=== PATIENT | male | born 1970 | race Caucasian/White ===

== ENCOUNTER 2021-01-18 15:56 | Emergency (ER) | payer BC, SELFPAY ==
[2021-01-18] VITALS (7 sets, daily range): BP systolic 141–153; BP diastolic 78–98; PULSE 67–89; RESP 15–26; TEMP 36.8; O2SAT 98–100
--- NOTE | ~2021-01-18 | XR_ITS ---
XR shoulder RT min 2V 01/18/2021 16:45 Indication: Right shoulder pain. Possible dislocation. Procedure: 2 views right shoulder Comparison: No prior studies for comparison. Findings: There is anterior right shoulder dislocation. No definite fracture identified. No significa nt soft tissue abnormality. Impression: 1: Right anterior shoulder dislocation. Reviewed, dictated and finalized at location A. Y CHEMIST Impression: 1: Right anterior shoulder dislocation.
--- NOTE | ~2021-01-18 | XR_ITS ---
XR shoulder RT min 2V 01/18/2021 17:41 INDICATION: Right shoulder pain post reduction PROCEDURE: 4 views right shoulder COMPARISON: No prior studies for comparison. FINDINGS: Fracture, dislocation or subluxation is not identified. There is anatomic alignment of the right shoulder post reduction. The soft tissues appear within normal limits. No foreign bodies are i dentified. IMPRESSION: 1: Anatomic alignment of the right shoulder post reduction. No underlying fracture appreciated. Reviewed, dictated and finalized at location A. ICE STATION CASHIER IMPRESSION: 1: Anatomic alignment of the right shoulder post reduction. No underlying fract ure appreciated.
--- NOTE | 2021-01-18 16:19 | ED.GENADULT ---
HPI - General Adult General Chief complaint: Extremity Injury, Upper <Laure Miranda PA-C - Last Filed: 01/18/21 18:25> Stated complaint: dislocated shoulder <Laure Miranda PA-C - Last Filed: 01/18/21 18:25> Time Seen by Provider: 01/18/21 16:18 <Laure Miranda PA-C - Last Filed: 01/18/21 18:25> Source: patient <Laure Miranda PA-C - Last Filed: 01/18/21 18:25> Mode of arrival: ambulatory <Laure Miranda PA-C - Last Filed: 01/18/21 18:25> Limitations: no limitations <Laure Miranda PA-C - Last Filed: 01/18/21 18:25> History of Present Illness HPI narrative: 50-year-old male who fell off a ladder while decorating his [employer] tree today now with right shoulder pain. <Laure Miranda PA-C - Last Filed: 01/18/21 18:25> Related Data Allergies/adverse reactions: Allergies Allergy/AdvReac Type Severity Reaction Status Date / Time Sulfa (Sulfonamide Allergy Mild Unknown Verified 01/18/21 16:01 Antibiotics) <Laure Miranda PA-C - Last Filed: 01/18/21 18:25> Review of Systems Review of Systems: All systems reviewed & are unremarkable except as noted in HPI and below <Laure Miranda PA-C - Last Filed: 01/18/21 18:25> [facility] Family History Family History: Family History Sibling Patient's brother is in good health <Laure Miranda PA-C - Last Filed: 01/18/21 18:25> Social History Social History: Social History (Updated 01/18/21 @ 18:18 by Laure Miranda PA-C) Smoking packs per day: 0.05 Smoking cigarettes per day: 1.0 Years smoked: 30 Smoking pack-years: 1.50 Smoking status: Former smoker Second hand tobacco smoke exposure: No Alcohol intake: current Substance use: never <Laure Miranda PA-C - Last Filed: 01/18/21 18:25> Exam Const: General: alert <Laure Miranda PA-C - Last Filed: 01/18/21 18:25> Orientation/consciousness: patient oriented x3 <Laure Miranda PA-C - Last Filed: 01/18/21 18:25> Limitations: other limitations (pain) <Laure Miranda PA-C - Last Filed: 01/18/21 18:25> HENMT: Head: normal to inspection <Laure Miranda PA-C - Last Filed: 01/18/21 18:25> Eyes: Pupils: Equal, round and reactive pupils present <Laure Miranda PA-C - Last Filed: 01/18/21 18:25> Resp: Effort & Inspection: normal respiratory effort <Laure Miranda PA-C - Last Filed: 01/18/21 18:25> Auscultation: clear to auscultation bilaterally <Laure Miranda PA-C Last Filed: 01/18/21 18:25> Cardio: Rate: regular rate <Laure Miranda PA-C Last Filed: 01/18/21 18:25> Rhythm: regular rhythm <Laure Miranda PA-C - Last Filed: 01/18/21 18:25> Skin: General skin exam: normal color <Laure Miranda PA-C - Last Filed: 01/18/21 18:25> Neuro: General: patient oriented x3 <Laure Miranda PA-C - Last Filed: 01/18/21 18:25> Extrem: Right upper extremity: normal capillary refill and shoulder/upper arm abnormal to inspection obvious dislocation <Laure Miranda PA-C - Last Filed: 01/18/21 18:25> Psych: Appearance: grossly normal <Laure Miranda PA-C - Last Filed: 01/18/21 18:25> Mental Status: mental status grossly normal <Laure Miranda PA-C - Last Filed: 01/18/21 18:25> Thought content: Yes Normal thought content present <Laure Miranda PA-C - Last Filed: 01/18/21 18:25> Course Course Emergency Course: Pt is feeling much better post-reduction. He is using both arms equally, no numbness or tingling in right arm/hand. Reviewed use of sling. <Laure Miranda PA-C - Last Filed: 01/18/21 18:25> VOLLEYBALL REFEREE/PA Physician Supervision I saw and evaluated the patient myself I performed the procedural sedation with reduction I agree with the care plan. <Vignesh Bañuelos MD - Last Filed: 01/18/21 18:48> Vital Signs Vital signs: Vital Signs Temperature 36.8 C 01/18/21 16:15 Pulse Rate 71 01/18/21 16:15 Respiratory Rate 17
[2021-01-18] MEDS: fentaNYL CITRATE INJ (*CRX) 100 MCG/2 ML VIAL 50 MCG IV PUSH ×2 (16:30→17:07)
[2021-01-18] MEDS: PROPOFOL IV EMULSION 200 MG/20 ML VIAL (17:25)
--- NOTE | 2021-01-18 17:25 | PC.NURSE ---
1725- Dr. Bañuelos at bedside, timeout performed, [address] Bañuelos.
--- NOTE | 2021-01-18 17:27 | PC.NURSE ---
1727- 20mg Propofol given by Dr. Bañuelos
--- NOTE | 2021-01-18 17:29 | PC.NURSE ---
1729- Shoulder back in place. Pt fully awake at this time.
== END 2021-01-18 18:46 | disposition home or self-care (01) ==
PROVIDERS: Emergency Provider Emergency Medicine; PCP Internal Medicine
DX: S43.014A Anterior dislocation of right humerus, initial encounter (principal); Z87.891 Personal history of nicotine dependence; W11.XXXA Fall on and from ladder, initial encounter
CPT/HCPCS: 23650; 73030; 96374; 96375; 99285; A4565; J2704; J3010

== ENCOUNTER 2022-10-21 12:45 | Outpatient (CLI) | payer BC, SELFPAY ==
[2022-10-21 14:06] LABS: SARS-CoV-2 RNA PCR Negative (Negative)
== END 2022-10-21 12:46 | disposition home or self-care (01) ==
PROVIDERS: PCP Internal Medicine; Visit Provider Internal Medicine
DX: J06.9 Acute upper respiratory infection, unspecified (principal)
CPT/HCPCS: 87635

== ENCOUNTER 2024-07-25 16:44 | Emergency (ER) | payer OTHER, SELFPAY ==
--- NOTE | 2024-07-25 16:57 | ED_ITS ---
HPI - URI/Sore Throat General Chief Complaint: Upper Respiratory Infection Stated Complaint: Fever/Sinus Time Seen by Provider: 07/25/24 17:10 Source: patient Mode of arrival: ambulatory Limitations: no limitations History of Present Illness HPI Narrative: Trevon is a 54-year-old male patient presenting to the clinic today with complaints of fever, chills, sinus congestion, headaches, diarrhea, and overall general malaise. He reports he was in the country of [place] for 9 days and was being bitten by sand flies. States that the locals gave him a medication to take for the bites. States that his family was ill as well however there symptoms have improved and he is still feeling bad. States that today is the 1st day he started feeling good after taking some ibuprofen. Denies any visual changes, blurry vision, dizziness, chest pain, abdominal pain, or shortness of breath. Related Data Allergies Allergy/AdvReac Type Severity Reaction Status Date / Time Sulfa (Sulfonamide Allergy Mild Unknown Verified 07/25/24 17:02 Antibiotics) Review of Systems Review of Systems: Pertinent positives per HPI. Patient denies any rash, headache, visual changes, dizziness, cough, shortness of breath, chest pain, palpitations, nausea, vomiting, diarrhea, constipation, abdominal pain, or any urinary issues. [facility] Past Medical History Medical History Shoulder dislocation Family History Family History Sibling Patient's brother is in good health Social History Social History Social History: Caffeine-daily Smoking packs per day: 0.05 Smoking cigarettes per day: 1.0 Years smoked: 30 Smoking pack-years: 1.50 Smoking status: Current every day smoker Tobacco type: cigarettes Second hand tobacco smoke exposure: No Alcohol intake: current Alcohol use details: socially Substance use: never Substance use type: does not use Lack of Transportation: No Lack of Food: Never True Current Housing: I Have Housing Concerned About Future Housing: No Difficulty Paying Gas/Electric Bills: No Difficulty Paying for Meds: No Currently Unemployed: No Education: Bachelor's Degree Difficulty w/ Childcare or Family Care: No Comments At the time of my signature, I reviewed and agree with the nursing past medical, surgical, social, and family history. There is no relevant family history pertinent to the patient complaint. Exam Narrative: General: Well-developed, well nourished, in no apparent distress Head: Normocephalic, atraumatic Eyes: Pupils equally round and reactive to light bilaterally, EOM intact, sclera and conjunctive clear, no discharge, lids normal Ears: TMs intact and clear, ear canals clear, no drainage, grossly hearing normal. Nose: Nares patent, no discharge, no inflammation, no sinus tenderness. Mouth: Oropharynx without lesions or masses, good dentition, MMM. Tongue midline, even rise and fall of uvula Neck: Supple, trachea midline, no enlargement of anterior or posterior cervical nodes, no thyroid masses or goiter palpable. Cardio: Regular rate and rhythm, s1 and s2 normal, no murmur appreciated. Resp: Clear to auscultation bilaterally anteriorly and posteriorly, no rhonchi, rales, wheezing or rubs Musculoskeletal: No deformity, non-tender to palpation, grossly normal range of motion, muscle strength strong and equal, peripheral pulse strong, no edema, no cyanosis, normal gait and station Neuro: Alert and oriented x4 with normal speech, no focal deficits, cranial nerves I through XII intact, muscle strength 5 out of 5, sensation intact bilaterally, negative Romberg test Course Course Emergency Course: Portions of this record may have been created with voice recognition software. Level of Care: Express Care Visit Vital Signs Vital signs: Vital Signs Temperature 37.6 C H 07/25/24 16:58 Pulse Rate 96 07/25/24 16:58 Respiratory Rate 20 07/25/24 16:58 Blood Pressure 135/78 07/25/24 16:58 Pulse Oximetry 97 07/25/24 16:58 Oxygen Delivery Room Air 07/25/24 16:58 Temperature 37.6 C H 07/25/24 16:58 Pulse Rate 96 07/25/24 16:58 Respiratory Rate 20 07/25/24 16:58 Blood Pressure 135/78 07/25/24 16:58 Pulse Oximetry 97 07/25/24 16:58 Oxygen Delivery Room Air 07/25/24 16:58 Vital signs reviewed MDM - URI/Sore Throat MDM Narrative Medical decision making narrative: At the time of visit patient is resting comfortably on the exam table. Patient appears to be nontoxic. Plan: Offer to send patient to the ER for further evaluation however patient would like to wait and see how he feels tomorrow. Discussed patient's case with Dr. Quigley in the emergency room [facility]. No signs of symptoms of encephalitis, dysentery, or malaria. Recommend going to the emergency room if his symptoms worsen. Supportive measures were discussed with the patient and they voiced understanding discharge instructions and agrees to treatment plan. Return precautions reviewed Differential Diagnosis Differential diagnosis: Likely upper respiratory infection, otitis media, sinusitis, viral infection, influenza and pharyngitis Lab Data Labs: Lab Results 07/25/24 07/25/24 Range/Units 16:55 18:00 POC Influenza A Ag Negative (Negative) POC Influenza B Ag Negative (Negative) POC SARS CoV-2 Ag Negative (Negative) POC Grp A Strep Screen Negative (Negative) Discharge Plan Discharge Clinical Impression: Acute viral syndrome Headache Qualifiers: Headache type: unspecified Headache chronicity pattern: acute headache Intractability: not intractable Qualified Code(s): R51.9 - Headache, unspecified Patient Disposition: Home Condition: Stable Instructions: Antibiotic Form, Acute Headache (ED), Viral Syndrome (ED) Additional Instructions: Increase fluids and stay well hydrated Tylenol/motrin for pain/fever Flonase and OTC antihistamines as directed Vicks vapor rub to open sinuses Sinus rinses for congestion Cepacol spray, cough drops, throat lozenges, warm tea with honey/lemon, gargle salt water to soothe throat BRAT diet for diarrhea Clear liquids x 24 hours then advance as tolerated for nausea/vomiting Go to the ED if you develop a worsening in your condition- high fever not controlled by Tylenol or Motrin, dehydration, weakness, lethargy, worsening headache, nausea, vomiting, abdominal pain, shortness of breath, or chest pain. Follow up with your PCP in 3-5 days if symptoms persist. Patient Language: Luxembourgish Prescriptions: No Action finasteride [Propecia] 1 mg tablet 1 mg PO DAILY Qty: 90 0RF Rx Instructions: Appointment before further refills sertraline 50 mg tablet See Rx Instructions .ROUTE .COMPLEX Qty: 90 1RF Dose Instruction: TAKE 1 TABLET BY MOUTH DAILY Rx Instructions: TAKE 1 TABLET BY MOUTH DAILY Follow-up/Referrals: Milly,Jose Ayala PA-C [Primary Care Provider] - Time of Disposition: 19:14 Quality NIHSS Nursing Documentation ED NIHSS nursing documentation: reviewed/agree
[2024-07-25 16:58] VITALS: BP 135/78; PULSE 96; RESP 20; TEMP 37.6; O2SAT 97
[2024-07-25 18:04] LABS: EDCOVIDSCREEN Negative (Negative); EDINFLUASCREEN Negative (Negative); EDINFLUBSCREEN Negative (Negative)
[2024-07-25 18:11] LABS: EDSTREPNEGPOS1 Negative (Negative)
== END 2024-07-25 18:40 | disposition home or self-care (01) ==
PROVIDERS: Emergency Provider Nurse Practitioner Family; PCP Physician Assistant
DX: B34.9 Viral infection, unspecified (principal); R51.9 Headache, unspecified; Z20.822 Contact with and (suspected) exposure to COVID-19; F17.210 Nicotine dependence, cigarettes, uncomplicated
CPT/HCPCS: 87081; 87426; 87804; 87880; 99213; G0463

== ENCOUNTER 2024-07-26 11:13 | Emergency (ER) | payer OTHER, SELFPAY ==
--- NOTE | ~2024-07-26 | XR_ITS ---
EXAMINATION: XR chest 2V 07/26/2024 12:31 INDICATION: Fever PROCEDURE: 2 view chest COMPARISON: No prior studies for comparison. FINDINGS: The lungs are clear. The cardiomediastinal silhouette is within normal limits. There are no pleural effusions. There is no pneumothorax suspected. IMPRESSION: 1: NO ACUTE CARDIOPULMONARY DISEASE. Reviewed, dictated and finalized at location A.
[2024-07-26 11:24] VITALS: BP 115/74; PULSE 84; RESP 18; TEMP 36.7; O2SAT 98
--- NOTE | 2024-07-26 11:25 | ECG_ITS ---
Test Date: 2024-07-26 11:52:56 Measurements Intervals [place] Rate: 67 P: 63 AR: 145 QRS: 62 QRSD: 86 T: 52 QT: 355 QTc: 377 Interpretive Statements SINUS RHYTHM CONSIDER RIGHT VENTRICULAR CONDUCTION DELAY DELAYED PRECORDIAL R/S TRANSITION BORDERLINE ECG No previous ECG available for comparison Electronically Signed On 07-26-2024 12:00:34 CDT by Sean Wheeler D.O.
--- OUTSIDE RECORDS SUMMARY | 2024-07-26 11:27 | XMS_ITS | Encounter Summary ---
Author Organization [facility] Address [address] [place] [address] Care Team Providers Care Rod Puller And Coiler Name Role Phone Unavailable Primary Care Provider Unavailabl e Encounter Details Date Type Department Care Team (Late st Contact Info) Description 06/30/2024 Lab Requisition [facility] - DermPath Lab [address] [facility] [place] [id number] Esperanza Crawford DO [address] [facility] [place] [place] [address] [place] [address] Social History Tobacco Use Types Packs/Day Years Used Date Smoking Tobacco: Never Assessed Sex and Gender Information Value Date Recorded Sex Assigned at Not on file 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 Gender Identity Not on file Sexual Orientation Not on file documented as of this encounter Plan of Treatment Not on file documented as of this encounter Procedures Procedure Name Priority Date/Time Associated Diagnosis Comments DERMATOPATHOLOGY Routine 06/30/2024 3:04 PM CDT documented in this encounter Results * DERMATOPATHOLOGY (06/30/2024 3:04 PM CDT) Case Report Dermatopathology Report Case: [id number] Authorizing Provider: Esperanza Crawford DO Collected: 06/30/2024 03:04 PM Ordering Location: [facility] - Received: 07/04/2024 01:19 PM DermPath Lab Pathologist: Sarah Sy MD Specimen: Skin, right upper arm 5 4:12 PM CDT DERMATOPATHOLOGY LABORATORY Final Diagnosis Specimen A. SKIN, right upper arm: HYPERPLASTIC (HYPERTROPHIC) ACTINIC KERATOSIS; EXTENDING TO THE BASE OF THE SPECIMEN (L57.0) (see microscopic description and comment) 5 4:12 PM CDT DERMATOPATHOLOGY LABORATORY at 1612 CDT Clinical History R/O BCC, [place] Papule; Non-Healing 4:12 PM CDT DERMATOPATHOLOGY LABORATORY Gross Description Specimen A: Received is one formalin filled container labeled with the patient's name and designated right upper arm. The specimen consists of a shave biopsy measuring 5x5x2 mm. Jar 0. 4:12 PM CDT DERMATOPATHOLOGY LABORATORY Microscopic Description Specimen A. SKIN, right upper arm: There is hyperkeratosis alternating with parakeratosis. There is epidermal hyperplasia with disorderly maturation of keratinocytes with nuclear pleomorphism confined to the lower half of the epidermis. This process extends to the base of the specimen. Additional deeper sections were obtained and reviewed. COMMENT: A squamous cell carcinoma cannot be ruled out. 4:12 PM CDT DERMATOPATHOLOGY LABORATORY Disclaimer An external and internal positive and negative controls are appropriate for the histochemical, immunohistochemical and immunofluorescence stain(s) in this case (if any), except where stated explicitly. The performance characteristics of the stain(s) cited in this report were developed and its performance characteristic determined by the Dermatopathology Laboratory at [facility], directed by Dr. Lucy Cobb. These tests need not be, and therefore are not, approved by the [place] Food and Drug Administration. The tests are used for clinical purposes. Billing Codes Specimen Charges Stain Charges 51998 1 4:12 PM CDT DERMATOPATHOLOGY LABORATORY Embedded Images 4:12 PM CDT DERMATOPATHOLOGY LABORATORY Pathology/Cytolo gy TISSUE SPECIMEN FROM SKIN / Unknown 06/30/2024 3:04 PM CDT 07/04/2024 1:19 PM CDT us Esperanza Crawford DO LAB - PATHOLOGY/CYTOLOGY ORDERABLES Final Result DERMATOPATHOLOGY LABORATORY [facility] - Department of Dermatology [address] [place] [address], [facility] [phone] documented in this encounter Visit Diagnoses Not on filedocumented in this encounter
--- OUTSIDE RECORDS SUMMARY | 2024-07-26 11:27 | XMS_ITS | Clinical Summary ---
Author Organization [facility] Address [address] [place] [address] Care Team Providers Care Press Pipe Inspector Name Role Phone Unavailable Primary Care Provider Unavailabl e Source Comments [facility] [employer],non-owned Affiliates and Associated Physician Practices is amultiple site organization consisting of ambulatory clinics and hospital sitesin [place], [place], [place] and [place]. This disclosure is being madepursuant to the Care Everywhere program and may not contain all information available regarding this patient. 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 Gender Identity Not on file Sexual Orientation Not on file Plan of Treatment Health Maintenance Due Date Last Done Comments COLOGUARD (AGES 45-75) - COL ON CA SCREENING 1970 COLON MONITORING 1970 COLONOSCOPY - COLON CA SCREENING 1970 CT COLONOGRAPHY - COLON CA SCREENING 1970 Colorectal Cancer Screening 1970 FIT - COLON CA SCREENING 1970 FLEX SIG - COLON CA SCREENING 1970 LIPID TESTING 1970 HIV SCREENING 1985 HEPATITIS C SCREENING 04/30/1988 DTAP/TDAP/TD VACCINES (1 - Tdap) 1989 HEPATITIS B VACCINE (1 of 3 - 19+ 3-dose series) 1989 PNEUMOCOCCAL VACCINE 50+ (1 of 1 - PCV) 2020 ZOSTER VACCINE (1 of 2) 2020 COVID-19 VACCINE ( - 2023-2 5 season) 2023 DEPRESSION SCREENING 02/24/2024 INFLUENZA VACCINE (Season Ended) 2024 HIB VACCINE Aged Out No longer eligi ble based on patient's age to complete this topic HPV VACCINE Aged Out No longer eligi ble based on patient's age to complete this topic MENINGOCOCCAL (Group B) VACC INE SHARED DECISION-MAKING Aged Out No longer eligibl e based on patient's age to complete this topic MENINGOCOCCAL GROUPS A/C/Y/W VACCINE Aged Out No longer eligible b ased on patient's age to complete this topic Procedures Procedure Name Priority Date/Time Associated Diagnosis Comments DERMATOPATHOLOGY Routine 06/30/2024 3:04 PM CDT from Last 3 Months Results * DERMATOPATHOLOGY (06/30/2024 3:04 PM CDT) Case Report Dermatopathology Report Case: [id number] Authorizing Provider: Esperanza Crawford DO Collected: 06/30/2024 03:04 PM Ordering Location: [facility] - Received: 07/04/2024 01:19 PM DermPath Lab Pathologist: Sarah Sy MD Specimen: Skin, right upper arm 4:12 PM CDT DERMATOPATHOLOGY LABORATORY Final Diagnosis Specimen A. SKIN, right upper arm: HYPERPLASTIC (HYPERTROPHIC) ACTINIC KERATOSIS; EXTENDING TO THE BASE OF THE SPECIMEN (L57.0) (see microscopic description and comment) 4:12 PM CDT DERMATOPATHOLOGY LABORATORY at 1612 CDT Clinical History R/O BCC, [place] Papule; Non-Healing 4:12 PM CDT DERMATOPATHOLOGY LABORATORY [...] characteristic determined by the Dermatopathology Laboratory at [facility], directed by Dr. Lucy Cobb. These tests need not be, and therefore are not, approved by the [place] Food and Drug Administration. The tests are used for clinical purposes. Billing Codes Specimen Charges Stain Charges 75009 1 5 4:12 PM CDT DERMATOPATHOLOGY LABORATORY Embedded Images 4:12 PM CDT DERMATOPATHOLOGY LABORATORY Pathology/Cytolo gy TISSUE SPECIMEN FROM SKIN / Unknown 06/30/2024 3:04 PM CDT 07/04/2024 1:19 PM CDT us Esperanza Crawford DO LAB - PATHOLOGY/CYTOLOGY ORDERABLES Final Result DERMATOPATHOLOGY LABORATORY [facility] - Department of Dermatology [address] [phone] from Last [address] [place] [address] [place] [address] [facility] Address: [facility] [address] [place] [address]
--- OUTSIDE RECORDS SUMMARY | 2024-07-26 11:27 | XMS_ITS | Encounter Summary ---
Author Organization [facility] Address [address] [place] [address] Care Team Providers Care Bumper Machine Operator Name Role Phone Unavailable Primary Care Provider Unavailabl e Encounter Details Date Type Department Care Team (Late st Contact Info) Description 03/08/2020 Lab Requisition [facility] DermPath Lab [address] [facility] [address] [place] [phone] Kimo Aguayo MD [address] [place] [address] Social History Tobacco Use Types Packs/Day Years Used Date Smoking Tobacco: Never Assessed Sex and Gender Information Value Date Recorded Sex Assigned at Not on file 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 Gender Identity Not on file Sexual Orientation Not on file documented as of this encounter Plan of Treatment Not on file documented as of this encounter Procedures Procedure Name Priority Date/Time Associated Diagnosis Comments DERMATOPATHOLOGY Routine 03/06/2020 3:27 AM CHIEF ACCOUNTING OFFICER documented in this encounter Results * DERMATOPATHOLOGY (03/06/2020 3:27 AM CHIEF ACCOUNTING OFFICER) Case Report Dermatopathology Report Case: [id number] Authorizing Provider: Kimo Aguayo MD Collected: 03/06/2020 03:27 AM Ordering Location: [facility] DermPath Lab Received: 03/08/2020 07:49 AM Pathologist: Irena Sagastume MD Specimen: Skin, left nipple 1 6:04 PM CHIEF ACCOUNTING OFFICER DERMATOPATHOLOGY LABORATORY Final Diagnosis Specimen A. SKIN, left nipple: HYPERPLASTIC (HYPERTROPHIC) ACTINIC KERATOSIS (L57.0) (see microscopic description) 1 6:04 PM CHIEF ACCOUNTING OFFICER DERMATOPATHOLOGY LABORATORY at 1803 CHIEF ACCOUNTING OFFICER Clinical History R/O neoplasm vs SK. 1 6:04 PM [facility] DERMATOPATHOLOGY LABORATORY Gross Description Specimen A: Received is one formalin filled container labeled with the patient's name and designated left nipple. The specimen consists of a punch biopsy measuring [id number]. Jar 0. 1 6:04 PM [facility] DERMATOPATHOLOGY LABORATORY Microscopic Description Specimen A. SKIN, left nipple: There is focal parakeratosis. There is epidermal hyperplasia with disorderly maturation of keratinocytes with nuclear pleomorphism confined to the lower half of the epidermis. Additional deeper sections were obtained and reviewed. The hematoxylin and eosin stain is reviewed; immunohistochemical stains are performed to assess for an intraepithelial lesion. P63 highlights lesional cells. CK7 highlights sebaceous glands. JUDD is positive in sebaceous glands and shows patchy positivity in the epidermis. MART-1/Melan-A staining highlights regular periodicity of melanocytes along the dermoepidermal junction. 1 6:04 PM [facility] DERMATOPATHOLOGY LABORATORY Disclaimer An external and internal positive and negative controls are appropriate for the histochemical, immunohistochemical and immunofluorescence stain(s) in this case (if any), except where stated explicitly. The performance characteristics of the stain(s) cited in this report were developed and its performance characteristic determined by the Dermatopathology Laboratory at [facility], directed by Dr. Lucy Cobb. These tests need not be, and therefore are not, approved by the [place] Food and Drug Administration. The tests are used for clinical purposes. Billing Codes Specimen Charges Stain Charges 63841 1 38308 23045 62482 15407 1 1 1 1 1 6:04 PM [facility] DERMATOPATHOLOGY LABORATORY Embedded Images 1 6:04 PM [facility] DERMATOPATHOLOGY LABORATORY Pathology/Cytolo gy TISSUE SPECIMEN FROM SKIN / Unknown 03/06/2020 3:27 AM CHIEF ACCOUNTING OFFICER 03/08/2020 7:49 AM CHIEF ACCOUNTING OFFICER Kiom Aguayo MD LAB - PATHOLOGY/CYTOLOGY ORDERAB LES Final Result DERMATOPATHOLOGY LABORATORY [facility] - Department of Dermatology [address] [phone] documented in this encounter Visit Diagnoses Not on filedocumented in this encounter
[2024-07-26 11:59] LABS: Basophils Percent Auto 0.3 % (0.2-1.2); Eosinophils Absolute Auto 0.1 K/mm3 (0-0.3); Eosinophils Percent Auto 0.9 % (0-4.4); Hematocrit 44.2 % (42.0-52.0); Hemoglobin 14.6 g/dL (14.0-18.0); Immature Granulocyte Absolute 0.02 K/mm3 (0.00-0.031); Immature Granulocyte Percent A 0.3 % (0-0.5); Lymphocytes Absolute Auto 1.74 K/mm3 (0.9-3.2); Lymphocytes Percent Auto 30.4 % (18.3-44.2); Mean Corpuscular Hemoglobin 31.3 pg (26-34); Mean Corpuscular Volume 94.6 fl (80-100); Monocytes Absolute Auto 0.8 K/mm3 (0.1-0.6); Monocytes Percent Auto 13.8 % (2.6-8.5); Neutrophils Absolute Auto 3.1 K/mm3 (1.3-6.7); Neutrophils Percent Auto 54.3 % (45.5-73.1); Platelet Count Result 190 k/mm3 (150-375); Red Blood Count 4.67 M/mm3 (4.6-6.20); Red Cell Distribution Width 12.9 % (11.5-14.5); White Blood Count 5.7 K/mm3 (4.5-10.0)
[2024-07-26 12:11] LABS: INR 1.1; Prothrombin Time 13.9 Seconds (11.1-14.7)
[2024-07-26 12:11] LABS: Add Urine Microscopic? NO; Appearance Urine Clear (Clear); Bilirubin Urine Negative (Negative); Blood Urine Negative (Negative); Color Urine Yellow (Yellow); Glucose Urine UA Negative (Negative); Ketones Urine Trace mg/dL (Negative); Leukocyte Esterase Ur Negative LEU/UL (Negative); Nitrate Urine Negative (Negative); Protein Urine Negative (Negative); Specific Grav Ur 1.024 (1.001-1.035); pH Urine 5.5 (5.0-9.0)
[2024-07-26 12:12] LABS: Partial Thromboplastin Time 28.3 Seconds (22.3-36.8)
--- OUTSIDE RECORDS SUMMARY | 2024-07-26 12:13 | XMS_ITS | Clinical Summary ---
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 [place],non-owned Affiliates and Associated Physician Practices is amultiple site organization consisting of ambulatory clinics and hospital sitesin [place], [place], [place] and [place]. This disclosure is being madepursuant to the Care Everywhere program and may not contain all information available regarding this patient. 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 SKIN, right upper arm: HYPERPLASTIC (HYPERTROPHIC) ACTINIC KERATOSIS; EXTENDING TO THE BASE OF THE SPECIMEN (L57.0) (see microscopic description and comment) 4:12 PM CDT DERMATOPATHOLOGY LABORATORY at 1612 CDT Clinical History R/O BCC, [place] Papule; Non-Healing 4:12 PM CDT DERMATOPATHOLOGY LABORATORY [...] characteristic determined by the Dermatopathology Laboratory at [facility], directed by Dr. Lucy Cobb. These tests need not be, and therefore are not, approved by the [place] Food and Drug Administration. The tests are used for clinical purposes. Billing Codes Specimen Charges Stain Charges 27209 1 5 4:12 PM CDT DERMATOPATHOLOGY LABORATORY Embedded Images 4:12 PM CDT DERMATOPATHOLOGY LABORATORY Pathology/Cytolo gy TISSUE SPECIMEN FROM SKIN / Unknown 06/30/2024 3:04 PM CDT 07/04/2024 1:19 PM CDT us Esperanza Crawford DO LAB - PATHOLOGY/CYTOLOGY ORDERABLES Final Result DERMATOPATHOLOGY LABORATORY [facility] - Department of Dermatology [address] [phone] from Last 3 [place] [address] [place] [address] [facility]
--- OUTSIDE RECORDS SUMMARY | 2024-07-26 12:13 | XMS_ITS | Continuity of Care Document ---
Author Organization [facility] Address [address] [place] [address] Phone Care Team Providers Care Penetration Tester Name Role Phone Gilbert Martino MD Unavailable Unavailable Allergies, Adverse Reactions, Alerts Substance Reaction Status Criticality Sulfa (Sulfonamide Antibiotics) Rash Active No Information Medications Medication Instructions Dosage Effective Dates (start - stop) Status Comments Propecia 1 mg tablet - Active Procedures Procedure Date X-ray exam shoulder complete, minimum 2 views Office/outpatient visit,est, mod 2021 Office/outpatient visit,est, mod 2020 X-ray exam shoulder complete, minimum 2 views Office/outpatient visit,est, mod 2020 Advance Directives Directive Yes / No Effective Date File Name No Information Encounters Encounter Description Practice Location Reason(s) For Visit Diagnoses Date Provider Providers Copied on Encounter Office/outpa tient visit,est, [facility] [address], [id number], [place] tel:[phone] [facility] right shoulder (chief complaint) Pain in right shoulder 2 Salena Hunt. [address] [address], [place], [address], [place]. tel: [phone] Office/outpa tient visit,est, [facility] [address] [place] [address], [id number], [place] tel:[phone] [facility] right shoulder (chief complaint) Pain in right shoulderUnspecifi ed dislocation of right shoulder joint, sequela 1 Salena Hunt. [address] [facility], [place], [address], [place]. tel: [phone] Office/outpa tient visit,est, [facility], [address], [place], [place], [id number], [place] tel:[phone] [facility] Right Shoulder (chief complaint) Pain in right shoulderUnspecifi ed dislocation of right shoulder joint, sequela 1 Salena Hunt. [address] [facility] [place] [facility], [address], [place], [address], [place]. tel: [phone] Family History Family Member Type Diagnosis Age At Onset No Information Payers Payer name Insurance type Covered libertarian ID Authoriza jaylene(s) Lorie Blue Cross Blue [facility] [id number] Social History Type Description Quantity Date Captured Comments Alcohol Use Details Unknown Caffeine Use Details Unknown Tobacco Use Status Smoking Status Current every day smoker 2021 Sex Male Vital Signs Date / Time: Height Weight BMI Pulse Rate Blood Pressure Temperature Respiratory Rate Body Surface Area Head Circumference Head Circ. Percentile Wt./Hi. Percentile BMI percentile Pulse Ox Inhaled Ox 9:04 AM 70.00 in 77.111 kg (170.00 lbs) 24.3 9 kg/m lexis (2) Chief Complaint And Reason For Visit From encounter dated '03/13/2021 09:00'. right shoulder (chief complaint). Description: Interval history:Patient is a very pleasant 50-year-old, right-hand dominant, active fit male who presents for follow-up evaluation up for his 1st time right anterior shoulder dislocation. Date of injury was 01/18/2021. He is about 8 weeks post injury.We are treating this conservatively. He has been in Physical Therapy. He did have a little bit of asetback a few weeks ago when he fell and braced his fall with his right arm. However, in the last few weeks, he feels significant improvement in his range of motion, strength and pain. He still is not 100%, as he cannot do pushups yet, but he feels a lot better. Reason For Referral Reason For Referral No Information Plan Of Treatment Date Type Action Status Referral Ordered: X-ray exam shoulder complete, minimum 2 views RT shoulder ordered History Of Present Illness Encounter Date Complaint History Of Prese nt Illness right shoulder Interval history :Patient is a very pleasant 50-year-old, right-hand dominant, active fit male who presents for follow-up evaluation up for his 1st time right anterior shoulder dislocation. Date of injury was 01/18/2021. He is about 8 weeks post injury. We are treating this conservatively. He has been in Physical Therapy. He did have a little bit of a setback a few weeks ago when he fell and braced his fall with his right arm. However, in the last few weeks, he feels significant improvement in his range of motion, strength and pain. He still is not 100%, as he cannot do pushups yet, but he feels a lot better. right shoulder This is a very p leasant 50-year-old, right-hand dominant, fit male, who presents for follow-up evaluation for a first-time right traumatic anterior shoulder dislocation. Date of injury 01/18/2021, almost exactly 3 weeks ago. This was sustained in a hard awkward fall while putting up [place] lights. I last saw him a week after injury. Since then, he has slowly weaned out of his sling. He has been compliant with his restrictions. He has been using his shoulder for light activities, but not weightbearing to it. Today, he notes his shoulder pain is significantly improved. He is able to move his arm much more and with much less pain over the last few weeks. Denies numbness, tingling, or weakness to the right upper extremity. Right Shoulder The patient is a very pleasant 50-year-old, right- hand dominant, fit male, who presents for initial evaluation after an acute right shoulder injury. He sustained an anterior dislocation on January 18, 2021, exactly 6 days ago. This was sustained during a hard awkward fall while putting up [place] lights. He presented to [facility] in [place], [place], where a closed reduction under conscious sedation was successfully achieved. He presents today for his first follow-up evaluation. He denies a history of any prior shoulder dislocations. He has never had shoulder surgery. He has never had any significant issues with his shoulder prior to this event. Today, he notes pain in the shoulder, but it is significantly improving over the last couple of days. He is able to move his arm significantly more than he was just a couple days ago. Denies numbness, tingling, or weakness to the right upper extremity. Functional Status Date Functional Assessmen t No Information Instructions Date Instruction Additional Infor mation No Information Assessments Type Assessment Date assessment Pain in right shoulder 22 impression The patient is a ramsey y pleasant 50-year-old, right-hand dominant, fit active male who presents for followup evaluation for a right first-time traumatic anterior shoulder dislocation. Date of injury 01/18/2021. He is about 8 weeks post injury. He continues to progress well. He has been in Physical Therapy. He feels his strength, pain and motion are all improving. However, he is still having difficulty with behind the back motion. 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 I discussed his diagnosis and treatment options at length. He needs to continue Physical Therapy, but focus now on stretching and range of motion, specifically posterior capsular stretching. He is developing a posttraumatic frozen shoulder. I do not see an obvious indication for MRI at this time, although we did discuss this again. His cuff feels strong. I will have him follow up in 4 weeks, at 3 months post injury, for repeat evaluation. I will assess his range of motion progression. If he still having pain or any weakness on cuff testing, I will order an MRI. We discussed ordering it today, though patient would like to defer and work on therapy more. All questions answered. Patient agrees with plan. Follow up 1 month Patient Care Teams Name Effective Dates (start - stop) Status Members No Information
--- OUTSIDE RECORDS SUMMARY | 2024-07-26 12:13 | XMS_ITS | Encounter Summary ---
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 Name Role Phone Unavailable Primary Care Provider Unavailabl e Encounter Details Date Type Department Care Team (Late st Contact Info) Description 03/08/2020 Lab Requisition [facility] DermPath Lab [address] [place] [phone] Kimo Aguayo MD [address] [place] [address] Social History Tobacco Use Types Packs/Day Years Used Date Smoking Tobacco: Never Assessed Sex and Gender Information Value Date Recorded Sex Assigned at Not on file 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 Gender Identity Not on file Sexual Orientation Not on file documented as of this encounter Plan of Treatment Not on file documented as of this encounter Procedures Procedure Name Priority Date/Time Associated Diagnosis Comments DERMATOPATHOLOGY Routine 03/06/2020 3:27 AM AERIAL PLANTING AND CULTIVATION MANAGER documented in this encounter Results * DERMATOPATHOLOGY (03/06/2020 3:27 AM AERIAL PLANTING AND CULTIVATION MANAGER) Case Report Dermatopathology Report Case: [id number] Authorizing Provider: Kimo Aguayo MD Collected: 03/06/2020 03:27 AM Ordering Location: [facility] DermPath Lab Received: 03/08/2020 07:49 AM Pathologist: Irena Sagastume MD Specimen: Skin, left nipple 1 6:04 PM AERIAL PLANTING AND CULTIVATION MANAGER DERMATOPATHOLOGY LABORATORY Final Diagnosis Specimen A. SKIN, left nipple: HYPERPLASTIC (HYPERTROPHIC) ACTINIC KERATOSIS (L57.0) (see microscopic description) 1 6:04 PM AERIAL PLANTING AND CULTIVATION MANAGER DERMATOPATHOLOGY LABORATORY at 1803 AERIAL PLANTING AND CULTIVATION MANAGER Clinical History R/O neoplasm vs SK. 1 6:04 PM [facility] DERMATOPATHOLOGY LABORATORY Gross Description Specimen A: Received is one formalin filled container labeled with the patient's name and designated left nipple. The specimen consists of a punch biopsy measuring [id number]. Jar 0. 1 6:04 PM [facility] DERMATOPATHOLOGY LABORATORY Microscopic Description Specimen A. [...] along the dermoepidermal junction. 1 6:04 PM [facility] DERMATOPATHOLOGY LABORATORY Disclaimer An external and internal positive and negative controls are appropriate for the histochemical, immunohistochemical and immunofluorescence stain(s) in this case (if any), except where stated explicitly. The performance characteristics of the stain(s) cited in this report were developed and its performance characteristic determined by the Dermatopathology Laboratory at [facility], directed by Dr. Lucy Cobb. These tests need not be, and therefore are not, approved by the [place] Food and Drug Administration. The tests are used for clinical purposes. Billing Codes Specimen Charges Stain Charges 66143 1 59498 66624 22569 40612 1 1 1 1 1 6:04 PM [facility] DERMATOPATHOLOGY LABORATORY Embedded Images 1 6:04 PM [facility] DERMATOPATHOLOGY LABORATORY Pathology/Cytolo gy TISSUE SPECIMEN FROM SKIN / Unknown 03/06/2020 3:27 AM AERIAL PLANTING AND CULTIVATION MANAGER 03/08/2020 7:49 AM AERIAL PLANTING AND CULTIVATION MANAGER Kimo Aguayo MD LAB - PATHOLOGY/CYTOLOGY ORDERAB LES Final Result DERMATOPATHOLOGY LABORATORY [facility] - Department of Dermatology [address] [phone] documented in this encounter Visit Diagnoses Not on filedocumented in this encounter
--- OUTSIDE RECORDS SUMMARY | 2024-07-26 12:13 | XMS_ITS | Encounter Summary ---
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 Plant Operator Name Role Phone Unavailable Primary Care Provider Unavailabl e Encounter Details Date Type Department Care Team (Late st Contact Info) Description 06/30/2024 Lab Requisition [facility] - DermPath Lab [address] [place] [phone] Esperanza Crawofrd DO [address] [facility] [address] [place] [address] Social History Tobacco Use Types Packs/Day Years Used Date Smoking Tobacco: Never Assessed Sex and Gender Information Value Date Recorded Sex Assigned at Not on file 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 Gender Identity Not on file Sexual Orientation Not on file documented as of this encounter Plan of Treatment Not on file documented as of this encounter Procedures Procedure Name Priority Date/Time Associated Diagnosis Comments DERMATOPATHOLOGY Routine 06/30/2024 3:04 PM CDT documented in this encounter Results * DERMATOPATHOLOGY (06/30/2024 3:04 PM CDT) Case Report Dermatopathology Report Case: [id number] Authorizing Provider: Esperanza Crawford DO Collected: 06/30/2024 03:04 PM Ordering Location: [facility] - Received: 07/04/2024 01:19 PM DermPath Lab Pathologist: Sarah Sy MD Specimen: Skin, right upper arm 5 4:12 PM CDT DERMATOPATHOLOGY LABORATORY Final Diagnosis Specimen A. SKIN, right upper arm: HYPERPLASTIC (HYPERTROPHIC) ACTINIC KERATOSIS; EXTENDING TO THE BASE OF THE SPECIMEN (L57.0) (see microscopic description and comment) 5 4:12 PM CDT DERMATOPATHOLOGY LABORATORY at 1612 CDT Clinical History R/O BCC, [place] Papule; Non-Healing 4:12 PM CDT DERMATOPATHOLOGY LABORATORY [...] characteristic determined by the Dermatopathology Laboratory at [facility], directed by Dr. Lucy Cobb. These tests need not be, and therefore are not, approved by the [place] Food and Drug Administration. The tests are used for clinical purposes. Billing Codes Specimen Charges Stain Charges 54143 1 4:12 PM CDT DERMATOPATHOLOGY LABORATORY Embedded Images 4:12 PM CDT DERMATOPATHOLOGY LABORATORY Pathology/Cytolo gy TISSUE SPECIMEN FROM SKIN / Unknown 06/30/2024 3:04 PM CDT 07/04/2024 1:19 PM CDT us Esperanza Crawford DO LAB - PATHOLOGY/CYTOLOGY ORDERABLES Final Result DERMATOPATHOLOGY LABORATORY [facility] - Department of Dermatology [address] [place] [address], [facility] [phone] documented in this encounter Visit Diagnoses Not on filedocumented in this encounter
[2024-07-26 12:19] LABS: Alanine Aminotransferase 22 U/L (6-50); Albumin Level 4.3 g/dL (3.5-5.1); Alkaline Phosphatase 67 U/L (38-126); Anion Gap 11 mmol/L (4-12); Aspartate Amino Transferase 34 U/L (17-59); Bilirubin,Total 0.8 mg/dL (0.2-1.3); Blood Urea Nitrogen 19 mg/dL (9-20); CRP 1.3 mg/dL (<1.0); Calcium 9.2 mg/dL (8.4-10.2); Carbon Dioxide 26 mmol/L (22-30); Chloride 106 mmol/L (98-107); Estimated CRCL calculation 98 ml/min; Estimated Glomerular Filt Rate > 60; Glucose 102 mg/dL (65-110); Lipase 51 U/L (23-300); Potassium 3.9 mmol/L (3.4-5.0); Sodium 143 mmol/L (137-145); Total Protein 7.3 g/dL (6.3-8.2)
[2024-07-26 12:29] LABS: Lactic Acid Reflex 1.3 mmol/L (0.7-2.0)
[2024-07-26 12:36] LABS: Influenza A QL RT-PCR Negative (Negative); Influenza B QL RT-PCR Negative (Negative); RSV RNA, RT-PCR Negative (Negative); SARS-CoV-2 RNA PCR Negative (Negative)
--- NOTE | 2024-07-26 12:52 | ED.FEVER ---
HPI - Fever General Chief Complaint: Fever Stated Complaint: FEVER FATIGUE X5D Time Seen by Provider: 07/26/24 11:25 Source: patient Mode of arrival: ambulatory Limitations: no limitations History of Present Illness HPI Narrative: This is a 54 year old male that presents to the ER for fevers, sweats, chills. Ongoing over the last 4 days. Reports he had one day of diarrhea. Reports he recently traveled to [place], he was there for 9 days. Reports these symptoms started a couple of days after returning. Reports he was bitten by a bunch of sand flies on the 16 of July. Reports he had a diffuse red, raised rash that has now resolved. Denies cough, congestion, sore throat, abdominal pain, vomiting. Related Data Allergies Allergy/AdvReac Type Severity Reaction Status Date / Time Sulfa (Sulfonamide Allergy Mild Unknown Verified 07/25/24 17:02 Antibiotics) Review of Systems Review of Systems: All systems reviewed & are unremarkable except as noted in HPI and below PMFSH Past Medical History Medical History Shoulder dislocation Family History Family History Sibling Patient's brother is in good health Social History Social History Social History: Caffeine-daily Smoking packs per day: 0.05 Smoking cigarettes per day: 1.0 Years smoked: 30 Smoking pack-years: 1.50 Smoking status: Current every day smoker Tobacco type: cigarettes Second hand tobacco smoke exposure: No Alcohol intake: current Alcohol use details: socially Substance use: never Substance use type: does not use Lack of Transportation: No Lack of Food: Never True Current Housing: I Have Housing Concerned About Future Housing: No Difficulty Paying Gas/Electric Bills: No Difficulty Paying for Meds: No Currently Unemployed: No Education: Bachelor's Degree Difficulty w/ Childcare or Family Care: No Exam Narrative: GENERAL: Well-appearing, well-nourished, and in no acute distress. HEAD: Normocephalic, atraumatic. EYES: PERRLA and EOMI. ENT: Nares clear, no rhinorrhea or epistaxis. Mucous membranes moist. Oropharynx without tonsillar hypertrophy exudate or other lesions. NECK: Supple. No adenopathy or masses. CHEST: Clear to auscultation. No respiratory distress. No wheezes rales or rhonchi HEART: Regular rate and rhythm. No murmur heard. Normal peripheral pulses. ABDOMEN: Soft, nontender, nondistended, normal active bowel sounds. EXTREMITIES: Normal range of motion. No edema. SKIN: Warm, dry, no rash. NEURO: No focal deficits. Alert and oriented x3. PSYCH: Normal mood and affect Course Vital Signs Vital signs: Vital Signs Temperature 98.0 F 07/26/24 11:24 Pulse Rate 84 07/26/24 11:24 Respiratory Rate 18 07/26/24 11:24 Blood Pressure 115/74 07/26/24 11:24 Pulse Oximetry 98 07/26/24 11:24 Oxygen Delivery Room Air 07/26/24 11:24 Temperature 99.0 F 07/26/24 13:44 Pulse Rate 78 07/26/24 13:44 Respiratory Rate 18 07/26/24 13:44 Blood Pressure 135/88 07/26/24 13:44 Pulse Oximetry 97 07/26/24 13:44 Oxygen Delivery Room Air 07/26/24 11:24 MDM - Fever MDM Narrative Medical decision making narrative: Patient presents to the emergency department for fevers, sweats. Ongoing over the last 4 days. Reports recent travel to [place]. He is afebrile in the ER and nontoxic appearing. His vitals are stable. CBC and metabolic panel without concerning findings. Urine without evidence of infection. Influenza, RSV and COVID screens are negative. He was also tested for strep yesterday which was negative. Chest x-ray without acute cardiopulmonary abnormality. Patient updated on his workup. He is overall well appearing. Patient is specifically concerned about leishmaniasis. I will give him information for follow up with infectious disease for further investigation. Differential Diagnosis Differential diagnosis: Likely cellulitis, fever of unknown origin, gastroenteritis, community acquired pneumonia, viral infection, sepsis and influenza Lab Data Attestation: I reviewed the patient's lab results. 07/26/24 11:45 07/26/24 11:45 Labs: Lab Results 07/26/24 07/26/24 Range/Units 11:45 11:54 WBC 5.7 (4.5-10.0) K/mm3 RBC 4.67 (4.6-6.20) M/mm3 Hgb 14.6 (14.0-18.0) g/dL Hct 44.2 (42.0-52.0) % MCV 94.6 (80-100) fl MCH 31.3 (26-34) pg MCHC 33.0 (32-36) g/dl RDW 12.9 (11.5-14.5) % Plt Count 190 (150-375) k/mm3 MPV 10.0 (7.4-10.4) fl Immature Gran % (Auto) 0.3 (0-0.5) % Neut % (Auto) 54.3 (45.5-73.1) % Lymph % (Auto) 30.4 (18.3-44.2) % [place] % (Auto) 13.8 H (2.6-8.5) % Eos % (Auto) 0.9 (0-4.4) % Baso % (Auto) 0.3 (0.2-1.2) % Lymph # (Auto) 1.74 (0.9-3.2) K/mm3 [place] # (Auto) 0.8 H (0.1-0.6) K/mm3 Eos # (Auto) 0.1 (0-0.3) K/mm3 Baso # (Auto) 0.0 (0.0-0.1) K/mm3 Abs Immat Gran (auto) 0.02 (0.00-0.031) K/mm3 Absolute Neuts (auto) 3.1 (1.3-6.7) K/mm3 Absolute Nucleated RBC 0.000 (0.0-0.012) K/mm3 Nucleated RBC % 0.0 (0.0-0.2) % PT 13.9 (11.1-14.7) Seconds INR 1.1 APTT 28.3 (22.3-36.8) Seconds Sodium 143 (137-145) mmol/L Potassium 3.9 (3.4-5.0) mmol/L Chloride 106 (98-107) mmol/L Carbon Dioxide 26 (22-30) mmol/L Anion Gap 11 (4-12) mmol/L BUN 19 (9-20) mg/dL Creatinine 0.77 (0.7-1.3) mg/dL Estim Creat Clear Calc 98 ml/min Estimated GFR > 60 (59 - ) Glucose 102 (65-110) mg/dL Lactic Acid 1.3 (0.7-2.0) mmol/L Calcium 9.2 (8.4-10.2) mg/dL Total Bilirubin 0.8 (0.2-1.3) mg/dL AST 34 (17-59) U/L ALT 22 (6-50) U/L Alkaline Phosphatase 67 (38-126) U/L C-Reactive Protein 1.3 H (<1.0) mg/dL Total Protein 7.3 (6.3-8.2) g/dL Albumin 4.3 (3.5-5.1) g/dL Lipase 51 (23-300) U/L Urine Color Yellow (Yellow) Urine Appearance Clear (Clear) Urine pH 5.5 (5.0-9.0) Ur Specific [place] 1.024 (1.001-1.035) Urine Protein Negative (Negative) mg/dL Urine Glucose (UA) Negative (Negative) mg/dL Urine Ketones Trace H (Negative) mg/dL Ur Blood (Man) Negative (Negative) Urine Nitrate Negative (Negative) Urine Bilirubin Negative (Negative) Urine Urobilinogen 1.0 (<2.0) mg/dL Leukocyte Esterase Rfl Negative (Negative) PIYUSH/UL Influenza A (RT-PCR) Negative (Negative) Influenza B (RT-PCR) Negative (Negative) RSV (RT-PCR) Negative (Negative) SARS-CoV-2 RNA (RT-PCR) Negative (Negative) Imaging Data Radiologist's impression: ITS Impressions Chest X-Ray 07/26/24 12:34 IMPRESSION: 1: NO ACUTE CARDIOPULMONARY DISEASE. ECG Data EKG #1: ECG completion date: 07/26/24 EKG Interpretation: normal rate, sinus rhythm, no ST changes and normal QT Critical Care Time Critical Care Time Critical Care Time: No Discharge Plan Discharge Clinical Impression: Fever Qualifiers: Fever type: unspecified Qualified Code(s): R50.9 - Fever, unspecified Patient Disposition: Home Condition: Stable Instructions: Fever in Adults (ED) Additional Instructions: Return to the emergency department if you experience fever >101, chest pain, shortness of breath, abdominal pain with nausea and vomiting, weakness, numbness, or any other symptoms that are concerning to you. Tylenol or ibuprofen as needed for pain or fever Follow up with infectious disease for further care [facility] infectious disease Patient Language: [place] Prescriptions: No Action finasteride [Propecia] 1 mg tablet 1 mg PO DAILY Qty: 90 0RF Rx Instructions: Appointment before further refills sertraline 50 mg tablet See Rx Instructions .ROUTE .COMPLEX Qty: 90 1RF Dose Instruction: TAKE 1 TABLET BY MOUTH DAILY Rx Instructions: TAKE 1 TABLET BY MOUTH DAILY Follow-up/Referrals: Roberto Carlos Adan DO [Primary Care Provider] -
[2024-07-26] MEDS: SODIUM CHLORIDE 0.9% IV 1,000 ML 999 ML IV CONT (13:42)
[2024-07-26 13:44] VITALS: BP 135/88; PULSE 78; RESP 18; TEMP 37.2; O2SAT 97
== END 2024-07-26 16:06 | disposition home or self-care (01) ==
PROVIDERS: Emergency Provider Physician Assistant; PCP Internal Medicine
DX: R50.9 Fever, unspecified (principal); F17.210 Nicotine dependence, cigarettes, uncomplicated; Z20.822 Contact with and (suspected) exposure to COVID-19
CPT/HCPCS: 36415; 71046; 80053; 81003; 83605; 83690; 85025; 85610; 85730; 86140; 87637; 93005; 96360; 99283; J7030